=== PATIENT | male | born 1945 | race Caucasian/White ===

== ENCOUNTER 2021-06-06 18:00 | Emergency (ER) | payer MEDICARE ==
[~2021-06-06] VITALS: Ht 182.9 cm; Wt 125.0 kg
[2021-06-06 18:54] LABS: BASO # 0.04 K/mm3 (0.02-0.10); EOS # 0.11 K/mm3 (0.04-0.40); HEMATOCRIT 45.9 % (42.0-52.0); HEMOGLOBIN 15.8 g/dL (13.5-18.0); LYMPH# 2.78 K/mm3 (1.50-4.00); MEAN CELL VOLUME 90 fl (78-100); MEAN CORPUSCULAR HEMOGLOBIN 31 pg (27-31); MEAN CORPUSCULAR HGB CONC 34 g/dL (33-37); MEAN PLATELET VOLUME 9.6 fl (7.4-10.4); MONO # 1.04 K/mm3 (0.20-0.80); NEU # 7.51 K/mm3 (1.40-6.50); PLATELET COUNT 228 K/mm3 (130-400); RED BLOOD COUNT 5.12 M/mm3 (4.20-5.60); WHITE BLOOD COUNT 11.5 K/mm3 (4.8-10.8)
[2021-06-06 19:09] LABS: PROTHROMBIN TIME 25.5 SECONDS (9.0-12.0)
[2021-06-06] MEDS ORDERED: TOPROL XL 50MG50 MG PO (19:32)
[2021-06-06] MEDS ORDERED: NORVASC 5MG5 MG/TAB PO (19:32)
[2021-06-06] MEDS ORDERED: LIPITOR 10M10 MG/TAB PO (19:32)
[2021-06-06] MEDS ORDERED: LASIX20 M1 PO (19:33)
[2021-06-06] MEDS ORDERED: SOTALOL HCL AF80 MG PO (19:33)
[2021-06-06] MEDS ORDERED: COZAAR100 MG PO (19:33)
[2021-06-06] MEDS ORDERED: JANTOVEN7.5 MG PO (19:34)
[2021-06-06] MEDS ORDERED: WARFARIN SODIUM5 MG PO (19:34)
[2021-06-06] MEDS ORDERED: COCONUT OIL 1 ML1 ML PO (19:34)
[2021-06-06] MEDS ORDERED: FISH OIL 1000MG1 CAP PO (19:34)
[2021-06-06] MEDS ORDERED: QUALITY CHOICE1 T26 PO (19:35)
[2021-06-06] MEDS ORDERED: ADULT ASPIRIN R81 MG PO (19:35)
[2021-06-06 20:00] VITALS: BP 146/101
== END 2021-06-06 20:00 | disposition home or self-care (01) ==
LOC: ED 18:00
PROVIDERS: Family Medicine
DX: S00.83XA Contusion of other part of head, initial encounter (principal); I48.91 Unspecified atrial fibrillation; Z79.01 Long term (current) use of anticoagulants; W01.198A Fall on same level from slipping, tripping and stumbling with subsequent striking against other object, initial encounter; Y92.009 Unspecified place in unspecified non-institutional (private) residence as the place of occurrence of the external cause

== ENCOUNTER 2021-07-01 09:00 | Outpatient (RCR) | payer MEDICARE ==
[~2021-07-01 09:00] MED LIST: ADULT ASPIRIN R81 MG PO; COCONUT OIL 1 ML1 ML PO; COZAAR100 MG PO; FISH OIL 1000MG1 CAP PO; JANTOVEN7.5 MG PO; LASIX20 M1 PO; LIPITOR 10M10 MG/TAB PO; NORVASC 5MG5 MG/TAB PO; QUALITY CHOICE1 T26 PO; SOTALOL HCL AF80 MG PO; TOPROL XL 50MG50 MG PO; WARFARIN SODIUM5 MG PO
== END 2021-07-09 | disposition still patient (30) ==
LOC: PT
DX: R26.89 Other abnormalities of gait and mobility (principal); W19.XXXA Unspecified fall, initial encounter

== ENCOUNTER 2021-07-16 13:00 | Outpatient (RCR) | payer MEDICARE | END 2021-08-08 | disposition still patient (30) | LOC: PT | DX: R26.89 Other abnormalities of gait and mobility (principal) ==

== ENCOUNTER 2021-08-11 11:25 | Outpatient (RCR) | payer MEDICARE | END 2021-09-08 | disposition home or self-care (01) | LOC: PT | DX: R26.89 Other abnormalities of gait and mobility (principal); W19.XXXA Unspecified fall, initial encounter ==

== ENCOUNTER 2021-09-09 13:43 | Outpatient (RCR) | payer MEDICARE | END 2021-10-08 | disposition home or self-care (01) | LOC: PT | DX: R26.89 Other abnormalities of gait and mobility (principal); W19.XXXA Unspecified fall, initial encounter ==

== ENCOUNTER 2021-10-09 09:57 | Outpatient (RCR) | payer MEDICARE | END 2021-10-22 17:00 | disposition home or self-care (01) | LOC: PT 09:57 | DX: R26.89 Other abnormalities of gait and mobility (principal); W19.XXXA Unspecified fall, initial encounter ==

== ENCOUNTER → 2022-05-07 | Outpatient (CLI) | payer MEDICARE ==
[~2022-05-07] MED LIST changes: +WARFARIN SOD5 MG
[2022-05-07 10:55] LABS: BASO # 0.05 K/mm3 (0.02-0.10); EOS # 0.12 K/mm3 (0.04-0.40); EOS % 0.9 % (0.0-4.0); HEMATOCRIT 31.8 % (42.0-52.0); LYMPH# 2.23 K/mm3 (1.50-4.00); MEAN CELL VOLUME 103 fl (78-100); MEAN CORPUSCULAR HEMOGLOBIN 32 pg (27-31); MEAN CORPUSCULAR HGB CONC 31 g/dL (33-37); MEAN PLATELET VOLUME 9.6 fl (7.4-10.4); MONO # 1.18 K/mm3 (0.20-0.80); NEU # 9.69 K/mm3 (1.40-6.50); PLATELET COUNT 293 K/mm3 (130-400); RED CELL DISTRIBUTION WIDTH 19.8 % (11.5-14.5); WHITE BLOOD COUNT 13.4 K/mm3 (4.8-10.8)
[2022-05-07 11:28] LABS: POTASSIUM 4.1 mmol/L (3.5-5.1)
[2022-05-07 11:29] LABS: CALCIUM 8.8 mg/dL (8.3-10.5)
== END ==
LOC: RAD 09:05 → LAB 09:05
PROVIDERS: Family Medicine
DX: J18.9 Pneumonia, unspecified organism (principal)

== ENCOUNTER → 2022-05-07 | Outpatient (CLI) | payer MEDICARE | LOC: LAB 10:38 | DX: J18.9 Pneumonia, unspecified organism (principal) ==

== ENCOUNTER → 2022-05-21 | Outpatient (CLI) | payer MEDICARE | LOC: RAD 11:08 | DX: R91.8 Other nonspecific abnormal finding of lung field (principal); R05.9 Cough, unspecified ==

== ENCOUNTER 2023-09-29 19:18 | Emergency (ER) | payer MEDICARE ==
[~2023-09-29] VITALS: Ht 182.9 cm; Wt 118.8 kg
[2023-09-29] MEDS ORDERED: WARFARIN SODIU7.5 MG PO (20:01)
[2023-09-29] MEDS ORDERED: COZAAR 50MG50 MG/TAB (20:04)
[2023-09-29] MEDS ORDERED: ATORVASTATIN CA80 MG (20:06)
[2023-09-29 21:09] VITALS: BP 147/67
== END 2023-09-29 21:11 | disposition home or self-care (01) ==
LOC: ED 19:18
DX: I97.610 Postprocedural hemorrhage of a circulatory system organ or structure following a cardiac catheterization (principal)

== ENCOUNTER → 2024-02-09 | Outpatient (RCR) | payer MEDICARE ==
[~2024-02-09] MED LIST changes: +ATORVASTATIN CA80 MG; +COZAAR 50MG50 MG/TAB; +WARFARIN SODIU7.5 MG PO
== END | disposition home or self-care (01) ==
LOC: CARDREHAB
DX: Z95.2 Presence of prosthetic heart valve (principal)

== ENCOUNTER 2024-02-13 08:28 | Outpatient (RCR) | payer MEDICARE | END 2024-03-10 | disposition home or self-care (01) | LOC: CARDREHAB | DX: Z48.812 Encounter for surgical aftercare following surgery on the circulatory system (principal); Z95.2 Presence of prosthetic heart valve ==

== ENCOUNTER 2024-03-12 08:35 | Outpatient (RCR) | payer MEDICARE | END 2024-04-10 | disposition home or self-care (01) | LOC: CARDREHAB | DX: Z48.812 Encounter for surgical aftercare following surgery on the circulatory system (principal); Z95.2 Presence of prosthetic heart valve ==

== ENCOUNTER 2024-05-09 10:58 | Outpatient (RCR) | payer MEDICARE | END 2024-05-11 | disposition home or self-care (01) | LOC: CARDREHAB | DX: Z48.812 Encounter for surgical aftercare following surgery on the circulatory system (principal); Z95.2 Presence of prosthetic heart valve ==

== ENCOUNTER 2024-05-14 09:45 | Outpatient (RCR) | payer MEDICARE | END 2024-06-08 | disposition home or self-care (01) | LOC: CARDREHAB | DX: Z48.812 Encounter for surgical aftercare following surgery on the circulatory system (principal); Z95.2 Presence of prosthetic heart valve ==